=== PATIENT | male | born 2000 | race African-American/Black ===

== ENCOUNTER 2019-04-12 22:31 | Emergency (ER) | payer SELFPAY ==
[~2019-04-12] VITALS: Ht 180.3 cm; Wt 118.0 kg
[2019-04-13] MEDS ORDERED: IBUPROFEN 600MG TABLET PO STA (01:40)
[2019-04-13 03:18] VITALS: BP 137/63
== END 2019-04-13 03:19 | disposition home or self-care (01) ==
LOC: ER 22:31
DX: M25.512 Pain in left shoulder (principal); F12.10 Cannabis abuse, uncomplicated; F17.200 Nicotine dependence, unspecified, uncomplicated; V49.88XA Car occupant (driver) (passenger) injured in other specified transport accidents, initial encounter; Y93.89 Activity, other specified; Y92.89 Other specified places as the place of occurrence of the external cause; Y99.8 Other external cause status
CPT/HCPCS: 71045; 73030; 99283